=== PATIENT | male | born 1995 | race African-American/Black ===

== ENCOUNTER 2025-04-26 07:41 | Emergency (ER) | payer MEDICAID ==
[~2025-04-26] VITALS: Ht 182.9 cm; Wt 98.0 kg
[2025-04-26 07:46] VITALS: BP 158/110; PULSE 90; RESP 18; TEMP 98.4; O2SAT 99
[2025-04-26 10:22] LABS: CLARITY URINE CLEAR (CLEAR); COLOR URINE YELLOW (YELLOW); GLUCOSE URINE NEGATIVE (NEGATIVE); KETONES URINE NEGATIVE (NEGATIVE); LEUKOCYTE ESTERASE URINE NEGATIVE (NEGATIVE); NITRITE URINE NEGATIVE (NEGATIVE); OCCULT BLOOD URINE NEGATIVE (NEGATIVE); PH URINE 5.0 (4.5-8.0); PROTEIN URINE NEGATIVE (NEGATIVE); SPECIFIC GRAVITY URINE 1.023 (1.005-1.030); UROBILINOGEN URINE 0.2 E.U./dL (0.2-1.0)
[2025-04-26] MEDS ORDERED: HYDROXYZINE 25MG TABLET PO PRN (10:30)
[2025-04-26 10:39] LABS: *AMPHETAMINES SCREEN URINE NEGATIVE (NEGATIVE); *BENZODIAZEPINES SCREEN URINE NEGATIVE (NEGATIVE)
[2025-04-26 10:40] LABS: *BARBITURATES SCREEN URINE NEGATIVE (NEGATIVE); *COCAINE SCREEN URINE NEGATIVE (NEGATIVE); CANNABINOID URINE SCREEN NEGATIVE (NEGATIVE); ECSTASY MDMA SCREEN URINE NEGATIVE (NEGATIVE); METHADONE URINE SCREEN NEGATIVE (NEGATIVE); OPIATES URINE SCREEN NEGATIVE (NEGATIVE); PHENCYCLIDINE URINE SCREEN NEGATIVE (NEGATIVE)
[2025-04-26] MEDS ORDERED: QUETIAPINE FUMARATE 25MG TABLET PO SCH (21:00)
== END 2025-04-26 10:47 | disposition left against medical advice (07) ==
LOC: ER 07:41
DX: R45.851 Suicidal ideations (principal); F25.9 Schizoaffective disorder, unspecified; Z79.899 Other long term (current) drug therapy
CPT/HCPCS: 80305; 81003; 99285